=== PATIENT | male | born 2005 | race Caucasian/White ===

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

== ENCOUNTER 2023-01-06 06:00 | Outpatient (RCR) | payer MEDICAID, SELFPAY | END 2023-01-08 23:59 | disposition home or self-care (01) | LOC: WPT 06:00 | PROVIDERS: Visit Provider Nurse Practitioner Family | DX: M54.50 Low back pain, unspecified (principal) | CPT/HCPCS: 97161 ==

== ENCOUNTER 2023-01-09 06:00 | Outpatient (RCR) | payer MEDICAID, SELFPAY | END 2023-02-08 23:59 | disposition home or self-care (01) | LOC: WPT 06:00 | PROVIDERS: Visit Provider Nurse Practitioner Family | DX: M54.50 Low back pain, unspecified (principal) | CPT/HCPCS: 97110; 97530 ==

== ENCOUNTER → 2023-07-06 14:39 | Outpatient (BNVA) | payer MEDICAID, SELFPAY | PROVIDERS: PCP Nurse Practitioner Family; Referring Provider Registered Nurse; Visit Provider Dermatology | DX: L73.2 Hidradenitis suppurativa (principal); L83 Acanthosis nigricans; D22.5 Melanocytic nevi of trunk | CPT/HCPCS: 99204 ==

== ENCOUNTER 2024-03-15 20:00 | Outpatient (CLI) | payer MEDICAID, SELFPAY | END 2024-03-15 20:01 | disposition home or self-care (01) | LOC: SLEEP 23:27 | PROVIDERS: PCP Nurse Practitioner Family; Visit Provider Registered Nurse | DX: G47.33 Obstructive sleep apnea (adult) (pediatric) (principal); Z99.89 Dependence on other enabling machines and devices | CPT/HCPCS: 95811 ==

== ENCOUNTER 2025-03-21 14:26 | Emergency (ER) | payer MEDICAID, SELFPAY ==
[2025-03-21 14:50] VITALS: BP 118/78; PULSE 65; TEMP 36.7; O2SAT 98; BMI 39.2
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
--- NOTE | 2025-03-21 15:18 | DCPLANNER ---
messaged general surgery for er f/u
[2025-03-21 15:40] VITALS: BP 134/83; PULSE 58; O2SAT 97
--- NOTE | 2025-03-21 15:45 | PC.NURSE ---
pt. states he has a ride home for pain meds.
[2025-03-21] MEDS: HYDROcodone-acetaminophen 5-325 mg Tablet 1 TAB PO (15:46)
[2025-03-21 15:57] VITALS: BP 134/87; PULSE 58; O2SAT 98
== END 2025-03-21 15:58 | disposition home or self-care (01) ==
PROVIDERS: Emergency Provider Emergency Medicine; PCP Nurse Practitioner Family
DX: K64.8 Other hemorrhoids (principal)
CPT/HCPCS: 99283; J9999